=== PATIENT | female | born 1945 | race Caucasian/White ===

== ENCOUNTER → 2016-06-20 | Outpatient (CLI) | payer MEDICARE, OTHER ==
[~2016-06-20] MED LIST: ALENDRONATE SOD70 MG PO; ANTIVERT25 MG PO; ASPIRIN81 MG PO; CARDIZEM 90MG T90 MG PO; CLARITIN 10MG T10 MG PO; COMBIVENT0.074 GM/I INH; COMPAZINE 10MG10 MG PO; CONSTULOSE10 GM/15 M PO; CORDARONE 200M200 MG PO; DEXILANT60 MG PO; DOC-Q-LACE100 MG PO; ELIQUIS5 MG PO; FOLIC ACID 1 MG1 MG PO; HYDROCODON-ACE1 EAC6 PO; LASIX IV; LEVAQUIN750 MG PO; LIPITOR TAB 2020 MG PO; LOPRESSOR 25 MG25 MG PO; MIRALAX PACK 171 PKT PO; MIRALAX17 GM PO; MONTELUKAST SOD10 MG PO; NEURONTIN 100100 MG PO; PATADAY2.5 ML OU; PERCOCET 5/325 T1 EA PO; PROTONIX 40 MG40 M1 PO; SENOKOT8.6 MG PO; SINGULAIR10 MG PO; SOLUMEDROL IV; SYNTHROID25 MCG PO; VIBRAMYCIN 100100 MG PO; XANAX0.5 MG PO; XARELTO20 MG PO; ZOFRAN8 MG PO; [UNRECOGNIZED DRUG - OTHER] IV
[2016-06-20 10:06] LABS: HEMOGLOBIN 10.3 gm/dl (12.3-15.3); RED BLOOD COUNT 3.28 M/UL (4.00-5.10); WHITE BLOOD COUNT 15.8 K/UL (4.5-11.0)
== END ==
LOC: OPSV 09:31 → CT 13:30
PROVIDERS: Internal Medicine Hematology & Oncology
DX: C34.12 Malignant neoplasm of upper lobe, left bronchus or lung (principal); E86.0 Dehydration
CPT/HCPCS: 36415; 71260; 80053; 83735; 85025; 96360; 96361; J7030; J7050; Q9962

== ENCOUNTER 2016-08-18 20:27 | Inpatient (IN) | payer MEDICARE, OTHER ==
[~2016-08-18] VITALS: Ht 160 cm; Wt 67.7 kg
[~2016-08-18 20:27] MED LIST changes: -CARDIZEM 90MG T90 MG PO; -CLARITIN 10MG T10 MG PO; -COMPAZINE 10MG10 MG PO; -CONSTULOSE10 GM/15 M PO; -CORDARONE 200M200 MG PO; -ELIQUIS5 MG PO; -FOLIC ACID 1 MG1 MG PO; -LASIX IV; -LEVAQUIN750 MG PO; -LIPITOR TAB 2020 MG PO; -LOPRESSOR 25 MG25 MG PO; -MIRALAX PACK 171 PKT PO; -NEURONTIN 100100 MG PO; -PERCOCET 5/325 T1 EA PO; -PROTONIX 40 MG40 M1 PO; -SENOKOT8.6 MG PO; -SINGULAIR10 MG PO; -SOLUMEDROL IV; -SYNTHROID25 MCG PO; -VIBRAMYCIN 100100 MG PO; -XANAX0.5 MG PO; -ZOFRAN8 MG PO; -[UNRECOGNIZED DRUG - OTHER] IV
[2016-08-18] MEDS ORDERED: SENOKOT8.6 MG PO (22:36)
[2016-08-18] MEDS ORDERED: FOLIC ACID 1 MG1 MG PO (22:37)
[2016-08-18] MEDS ORDERED: ZOFRAN8 MG PO (22:37)
[2016-08-18] MEDS ORDERED: COMPAZINE 10MG10 MG PO (22:39)
[2016-08-18] MEDS ORDERED: CONSTULOSE10 GM/15 M PO (22:40)
[2016-08-18] MEDS ORDERED: CLARITIN 10MG T10 MG PO (22:41)
[2016-08-18] MEDS ORDERED: XANAX0.5 MG PO (22:45)
[2016-08-19 01:38] LABS: HEMOGLOBIN 10.3 gm/dl (12.3-15.3); RED BLOOD COUNT 3.24 M/UL (4.00-5.10)
[2016-08-19 01:39] LABS: WHITE BLOOD COUNT 1.5 K/UL (4.5-11.0)
[2016-08-19 01:55] LABS: BUN/CREATININE RATIO 21 (0-10)
[2016-08-20 03:43] LABS: HEMOGLOBIN 9.3 gm/dl (12.3-15.3); RED BLOOD COUNT 2.98 M/UL (4.00-5.10)
[2016-08-20 03:48] LABS: WHITE BLOOD COUNT 8.5 K/UL (4.5-11.0)
[2016-08-20 03:59] LABS: BUN/CREATININE RATIO 18 (0-10)
[2016-08-21 04:21] LABS: HEMOGLOBIN 9.7 gm/dl (12.3-15.3); RED BLOOD COUNT 3.1 M/UL (4.00-5.10)
[2016-08-21 04:28] LABS: WHITE BLOOD COUNT 13.4 K/UL (4.5-11.0)
[2016-08-21 04:43] LABS: BUN/CREATININE RATIO 20 (0-10)
[2016-08-21] MEDS ORDERED: LEVAQUIN750 MG PO (16:14)
[2016-08-21] MEDS ORDERED: LOPRESSOR 25 MG25 MG PO (16:16)
[2016-11-18] MEDS ORDERED: ELIQUIS5 MG PO (14:43)
[2016-11-18] MEDS ORDERED: CARDIZEM 90MG T90 MG PO (14:43)
[2016-11-18] MEDS ORDERED: SYNTHROID25 MCG PO (14:44)
[2016-11-18] MEDS ORDERED: MIRALAX PACK 171 PKT PO (14:45)
[2016-11-18] MEDS ORDERED: SINGULAIR10 MG PO (14:46)
[2016-11-18] MEDS ORDERED: NEURONTIN 100100 MG PO (14:47)
[2016-11-18] MEDS ORDERED: PERCOCET 5/325 T1 EA PO (14:48)
[2016-11-18] MEDS ORDERED: LIPITOR TAB 2020 MG PO (14:49)
[2016-11-18] MEDS ORDERED: PROTONIX 40 MG40 M1 PO (14:50)
[2016-11-18] MEDS ORDERED: VIBRAMYCIN 100100 MG PO (14:52)
[2016-11-18] MEDS ORDERED: CORDARONE 200M200 MG PO (14:53)
[2016-11-18] MEDS ORDERED: [UNRECOGNIZED DRUG - OTHER] IV (14:55)
[2016-11-18] MEDS ORDERED: LASIX IV (14:55)
[2016-11-18] MEDS ORDERED: SOLUMEDROL IV (14:56)
== END 2016-08-21 18:17 | disposition home health service (06) | DRG 871 ==
LOC: PROG CARE 22:05
PROVIDERS: Internal Medicine; ADMIT Internal Medicine
DX: A41.9 Sepsis, unspecified organism (principal); J96.21 Acute and chronic respiratory failure with hypoxia; D61.810 Antineoplastic chemotherapy induced pancytopenia; J15.1 Pneumonia due to Pseudomonas; J44.0 Chronic obstructive pulmonary disease with (acute) lower respiratory infection; C34.12 Malignant neoplasm of upper lobe, left bronchus or lung; T45.1X5A Adverse effect of antineoplastic and immunosuppressive drugs, initial encounter; I10 Essential (primary) hypertension; E03.9 Hypothyroidism, unspecified; F17.210 Nicotine dependence, cigarettes, uncomplicated; F41.9 Anxiety disorder, unspecified; Z86.718 Personal history of other venous thrombosis and embolism; Z92.3 Personal history of irradiation; Z79.01 Long term (current) use of anticoagulants; Z79.82 Long term (current) use of aspirin; Z99.81 Dependence on supplemental oxygen; Z79.891 Long term (current) use of opiate analgesic; Z79.899 Other long term (current) drug therapy; Z80.1 Family history of malignant neoplasm of trachea, bronchus and lung; Z80.6 Family history of leukemia; Z80.42 Family history of malignant neoplasm of prostate; Z82.3 Family history of stroke; Z82.49 Family history of ischemic heart disease and other diseases of the circulatory system
CPT/HCPCS: 36415; 71010; 80048; 81001; 83605; 83735; 84100; 85025; 85027; 87040; 93005; 94640; 94664; J1442; J1956; J2543; J2550; J2920; J7030; J7050